=== PATIENT | female | born 1995 | race Caucasian/White ===

== ENCOUNTER 2017-04-17 14:17 | Emergency (ER) | payer BC ==
[2017-04-17 14:34] VITALS: BP 115/75
--- NOTE | 2017-04-17 14:56 | UC ---
Skin Complaint HPI - HPI Summary HPI Summary: Started new OCP rxed by PP 5 days ago, 3 days ago noticed itchy red spots on abd and breasts. Now has some on shoulders and back as well. Denies swelling, trouble breathing, vomiting, fainting, or changes in the rash. Spots are fixed. - History of Current Complaint Hx Obtained From: Patient Hx Last Menstrual Period: 04/10/17 Onset/Duration: Gradual Onset, Lasting Days Timing: Constant Onset Severity: Mild Current Severity: Mild Pain Intensity: 0 Location: Discrete Character: Pruritus, Redness Aggravating Factor(s): Nothing Alleviating Factor(s): Nothing Associated Signs & Symptoms: Positive: Rash Related History: Recent change in medication <Caitlyn Arceo - Last Filed: 04/17/17 14:52> <Miri Mason - Last Filed: 04/17/17 16:40> - History of Current Complaint Chief Complaint: [facility] Time Seen by Provider: 04/17/17 14:36 Stated Complaint: SKIN COMPLAINT - Allergy/Home Medications Allergies/Adverse Reactions: Allergies Allergy/AdvReac Type Severity Reaction Status Date / Time No Known Allergies Allergy Verified 04/17/17 14:34 Home Medications: Home Medications Desogestrel-Ethinyl Estradiol [Juleber 0.15-30 mg-Mcg] 1 tab PO DAILY 04/17/17 [ History Confirmed 04/17/17] diPHENhydraMINE PO* [Benadryl PO 25 MG TAB*] 25 mg PO Q6H PRN 04/17/17 [History Confirmed 04/17/17] Review of Systems Constitutional: Negative Skin: Rash Eyes: Negative ENT: Negative Respiratory: Negative Cardiovascular: Negative Gastrointestinal: Negative Genitourinary: Negative Motor: Negative Neurovascular: Negative Musculoskeletal: Negative Neurological: Negative Psychological: Negative Is Patient Immunocompromised?: No All Other Systems Reviewed And Are Negative: Yes <Caitlyn Arceo - Last Filed: 04/17/17 14:52> PMH/Surg Hx/FS Hx/Imm Hx Respiratory History: Asthma - Surgical History Surgical History: Yes Surgery Procedure, Year, and Place: R fore arm distal bicept repair - Family History Known Family History: Positive: Hypertension - Social History Occupation: Student Alcohol Use: Occasionally Alcohol Amount: 1 DRINK Q 3 MONTH Substance Use Type: None Smoking Status (MU): Never Smoked Tobacco <Caitlyn Arceo - Last Filed: 04/17/17 14:52> Physical Exam Triage Information Reviewed: Yes Appearance: Well-Appearing, No Pain Distress Vital Signs: Initial Vital Signs Temp 98.0 F 04/17/17 14:30 Pulse 86 04/17/17 14:30 Resp 16 04/17/17 14:30 BP 115/75 04/17/17 14:30 Pulse Ox 100 04/17/17 14:30 Vital Signs Reviewed: Yes Eye Exam: Normal Eyes: Positive: Conjunctiva Clear ENT Exam: Normal ENT: Positive: Normal ENT inspection, Hearing grossly normal, Pharynx normal, TMs normal Dental Exam: Normal Neck exam: Normal Respiratory Exam: Normal Respiratory: Positive: Chest non-tender, Lungs clear, Normal breath sounds, No respiratory distress, No accessory muscle use Cardiovascular Exam: Normal Cardiovascular: Positive: RRR, No Murmur Musculoskeletal Exam: Normal Neurological Exam: Normal Psychological Exam: Normal Skin Exam: Other - discrete macules on abd, breasts, neck, upper back from 3- 10mm, mostly dark with fine scale. <Caitlyn Arceo - Last Filed: 04/17/17 14:52> Vital Signs: Initial Vital Signs Temp 98.0 F 04/17/17 14:30 Pulse 86 04/17/17 14:30 Resp 16 04/17/17 14:30 BP 115/75 04/17/17 14:30 Pulse Ox 100 04/17/17 14:30 <Miri Mason - Last Filed: 04/17/17 16:40> Course/Dx - Diagnoses Provider Diagnoses: pityriasis roasea. versus. medication allergy <Caitlyn Arceo - Last Filed: 04/17/17 14:52> Discharge <Caitlyn Arceo - Last Filed: 04/17/17 14:52> <Miri Mason - Last Filed: 04/17/17 16:40> - Discharge Plan Condition: Stable Disposition: HOME Patient Education Materials: Acute Rash (ED), Pityriasis rosea (ED) Referrals: No Primary Care Phys,NOPCP [Primary Care Provider] - Additional Instructions: As we discussed, your rash could be a drug reaction or it could be pityriasis rosea. I actually think pityriasis is more likely based on how it looks, but changing your medication is still probably the safest thing to do. You do not need steroids at this time; please come back if you have sudden or severe worsening. Attestation Statement User Type: Provider - I was available for consult. This patient was seen by the advanced practice provider. The patient was not presented to, seen by, or examined by me.-Clarissa <Miri Mason - Last Filed: 04/17/17 16:40>
== END 2017-04-17 15:00 | disposition home or self-care (01) ==
LOC: UCEAST 14:17
DX: R21 Rash and other nonspecific skin eruption (principal); J45.909 Unspecified asthma, uncomplicated
CPT/HCPCS: 99211; G0463

== ENCOUNTER 2023-06-07 18:02 | Inpatient (IN) ==
[2023-06-07] MEDS ORDERED: Lidocaine 1% VIAL 10 MG/ML 30 ML VIAL INJ PRN (20:38)
[2023-06-07] MEDS: Dinoprostone 10 MG VAG.SUPP VAGINAL ONE (21:15)
[2023-06-08 01:08] LABS: Urine Benzodiazepine Screen None Detected (None Detect); Urine Cannabinoids Screen None Detected (None Detect); Urine Opiates Screen None Detected (None Detect)
[2023-06-08] MEDS: Lactated Ringers 1000 ml BAG 1,000 ML IV ONE ×2 (11:03→19:59)
[2023-06-08] MEDS: Penicillin G Potassium IV 5,000,000 UNITS in NS 0.9% 100 ml BAG 100 ML IVPB ONE (11:13)
[2023-06-08] MEDS: Oxytocin in LR 20,000 MILLI.UNIT/1,000 ML BAG IV SCH (11:13)
[2023-06-08 11:15] LABS: ABS Lymphocytes 2.1 10^3/uL (1.0-4.8); ABS Monocytes 0.7 10^3/uL (0.0-0.9); ABS Nucleated RBC 0.01 10^3/ul; Eosinophil % 0.5 %; Hematocrit 36.6 % (35-45); Hemoglobin 12.1 g/dL (11.5-14.3); Mean Corpuscular Hemoglobin 24.9 pg (27-33); Mean Corpuscular Volume 75.5 fL (80-97); Mean Platelet Volume 9.1 fL (7.5-11.2); Nucleated Red Blood Cells % 0.1 %/100WBC (0.0-0.8); Platelet Count 293 10^3/uL (150-450); Red Blood Count 4.85 10^6/uL (3.63-4.92); Red Cell Distribution Width 16.4 % (12-17); White Blood Count 9.9 10^3/uL (3.8-11.8)
[2023-06-08 11:41] LABS: Albumin 3.1 g/dL (3.2-5.2); Albumin/Globulin Ratio 1.2 (1-3); Calcium 8.5 mg/dL (8.6-10.3); Creatinine, Serum 0.47 mg/dL (0.51-0.95); Globulin 2.6 g/dL (2-4); Potassium 4.4 mmol/L (3.5-5.0); Total Bilirubin 0.3 mg/dL (0.2-1.0); Total Protein 5.7 g/dL (6.4-8.9); eGFR CKD-EPI 133.7 (>60)
[2023-06-08] MEDS: Lactated Ringers 1000 ml BAG 1,000 ML IV SCH (14:02)
[2023-06-08] MEDS: OBEPIDURAL (200 ML) 200 ML EPIDURAL ONE (14:16)
[2023-06-08] MEDS: Penicillin G Potassium IV 3,000,000 UNITS in NS 0.9% 100 ml BAG 100 ML IVPB SCH (15:06)
[2023-06-08 15:41] LABS: Urine Appearance Clear; Urine Bilirubin Negative (Negative); Urine Blood Negative (Negative); Urine Color Colorless; Urine Glucose Negative (Negative); Urine Ketones Negative (Negative); Urine Nitrite Negative (Negative); Urine Protein Negative (Negative); Urine Specific Gravity 1.007 (1.002-1.030); Urine Urobilinogen Negative (Negative)
[2023-06-08] MEDS ORDERED: Phenylephrine 40 mcg/mL 10mL (400mcg) SYRINGE IV PUSH PRN ×2 (15:45)
[2023-06-08] MEDS: Lidocaine 1.5% EPI 1:200,000 30 ML SDV ONE (19:57)
[2023-06-08] MEDS: Buffered Lidocaine 1% SYRIN 1 ml INTRADERM ONE (19:57)
[2023-06-08] MEDS: OBEPIDURAL (200 ML) 200 ML EPIDURAL SCH (19:59)
[2023-06-09] MEDS: Lactated Ringers 1000 ml BAG 1,000 ML IV SCH (02:12)
[2023-06-09] MEDS: Ondansetron 4 mg VIAL 2 MG/ML 2 ml VIAL IV PRN (03:00)
[2023-06-09] MEDS: OBEPIDURAL (200 ML) 200 ML EPIDURAL ONE (05:51)
[2023-06-09] MEDS: Sodium Citrate/Citric Acid LIQ 15 ML UDC PO PRN (17:54)
[2023-06-09] MEDS: ceFOXitin 2 GM IVPREMIX 2 GM/50 ML BAG ONE (17:54)
[2023-06-09] MEDS ORDERED: Morphine PF AMP (0.5MG/ML) 5 MG/10 ML AMP ONE (18:03)
[2023-06-09] MEDS ORDERED: Ondansetron 4 mg VIAL 2 MG/ML 2 ml VIAL ONE (18:20)
[2023-06-09] MEDS ORDERED: Oxytocin 10 UNITS/ML 1 ML VIAL ONE ×4 (18:20→19:29)
[2023-06-09] MEDS ORDERED: Phenylephrine IV 10 MG/ML 1 ml VIAL ONE (18:45)
[2023-06-09] MEDS ORDERED: Glycopyrrolate IV 0.2 MG/ML 1 ML VIAL ONE (18:49)
[2023-06-09] MEDS ORDERED: Ondansetron 4 mg VIAL 2 MG/ML 2 ml VIAL IV PRN (18:57)
[2023-06-09] MEDS ORDERED: Naloxone 0.4 mg VIAL 0.4 mg/ml 1 ml VIAL IV PUSH PRN (18:57)
[2023-06-09] MEDS ORDERED: Scopolamine 1 mg/72hr PATCH TRANSDERM PRN (18:57)
[2023-06-09] MEDS ORDERED: Dexamethasone IV 4 MG/ML VIAL 1 ml VIAL ONE (19:25)
[2023-06-09] MEDS ORDERED: Dibucaine 1% OINT 28.35 GM TUBE PR PRN (20:13)
[2023-06-09] MEDS ORDERED: Glycerin ADULT 2.4 gm SUPP PR PRN (20:13)
[2023-06-09] MEDS ORDERED: Lactated Ringers 1000 ml BAG 1,000 ML IV SCH (21:00)
[2023-06-09] MEDS: Acetaminophen IV 1 GM/100ML 1,000 MG/100 ML BAG IV PRN (21:03)
[2023-06-10] MEDS: Oxytocin in LR 20,000 MILLI.UNIT/1,000 ML BAG IV SCH (03:12)
[2023-06-10 07:46] LABS: ABS Lymphocytes 1.8 10^3/uL (1.0-4.8); ABS Monocytes 0.7 10^3/uL (0.0-0.9); Hematocrit 31.1 % (35-45); Hemoglobin 10.1 g/dL (11.5-14.3); Lymphocyte % 13.2 %; Mean Corpuscular Hemoglobin 24.8 pg (27-33); Mean Corpuscular Hgb Conc 32.7 g/dL (31-36); Mean Corpuscular Volume 76.1 fL (80-97); Mean Platelet Volume 9.1 fL (7.5-11.2); Platelet Count 227 10^3/uL (150-450); Red Blood Count 4.08 10^6/uL (3.63-4.92); Red Cell Distribution Width 15.9 % (12-17); White Blood Count 13.5 10^3/uL (3.8-11.8)
[2023-06-12 07:32] VITALS: BP 128/77
[2023-06-12] MEDS: Witch Hazel PAD JAR TOPICAL PRN (12:09)
== END 2023-06-12 12:15 | disposition home or self-care (01) | DRG 540 ==
LOC: MCHOBOUT 18:02 → MCHOB 20:40
PROVIDERS: ADMIT Obstetrics & Gynecology; ATTEND Obstetrics & Gynecology